=== PATIENT | male | born 1955 | race Caucasian/White ===

== ENCOUNTER 2017-04-17 12:11 | Emergency (ER) | payer OTHER ==
--- NOTE | 2017-04-17 12:22 | EDPHY ---
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 He fell about 3 feet from the ground and landed on his back and hit the back of his head. He denies loss of consciousness, he denies amnesia, he denies nausea vomiting, denies any neurologic problems, he denies any major scalp trauma except for a knot in the left occiput region. Came here because the simply requested that. He has some mild bruising or contusion to the left shoulder blade also but he can move everything around well and thinks he is fine. REVIEW OF SYSTEMS: A 10 point review of systems was performed and is negative with the exception of the elements mentioned in the history of present illness. PHYSICAL EXAM: HR, BP, O2 Sat, RR. Temp noted General Appearance: Alert, well hydrated, appropriate, and non-toxic appearing. Head: Small hematoma left occipital region. No laceration. No abrasion. No hemotympanum Eyes: Pupils equal, round, reactive to light and accommodation, EOMI, no trauma , no injection. Ears: Clear bilaterally, no perforation, normal landmarks Nose: Atraumatic, no rhinorrhea, clear. Throat: There is no erythema or exudates, no lesions, normal tonsils, mucus membranes moist. Neck: Supple, 2+ carotid upstroke, nontender, no lymphadenopathy. Respiratory: No retractions, no distress, no wheezes, and no accessory muscle use. Lungs are clear to auscultation bilaterally. Cardiovascular: Regular rate and rhythm, no murmurs, rubs, or gallops. Bilateral carotid, radial, dorsalis pedis, and posterior tibial pulses intact. Good capillary refill all extremities. Gastrointestinal: Abdomen is soft, nontender, non-distended, no masses, no rebound, no guarding, no peritoneal signs. Musculoskeletal: Mild contusion left shoulder blade excellent range of motion of all extremities Normal active ROM of all extremities, atraumatic. Neurological: Alert, appropriate, and interactive. The patient has normal DTRs and non-focal cranial nerves, motor, sensory, and cerebellar exam. Skin: No rashes, good turgor, no nodules on palpation. Past medical history: Hypertension Past surgical history: Noncontributory Family history: Noncontributory Social history: Employed, , does not abuse tobacco drugs or alcohol DIAGNOSTICS/PROCEDURES/CRITICAL CARE TIME: Not indicated based on negative [place] head CT rules set DIFFERENTIAL DIAGNOSIS: The differential diagnosis for the patient's trauma included but was not limited to intracranial injury, long bone and pelvic bone fractures, spinal injury, intra-abdominal injury, and intra-thoracic injury. MEDICAL DECISION MAKING: This patient rules out in terms of requiring any neuro imaging. In addition he has some mild contusion of his left scapula. I will send him home with no work restrictions. He does not want any pain meds and will just use ibuprofen or Naprosyn. He will follow up with Work Comp as needed his employer's here in the room. Departure - Departure Disposition: Home, Routine, Self-Care Clinical Impression: Scalp contusion Qualifiers: Encounter type: initial encounter Qualified Code(s): S00.03XA - Contusion of scalp, initial encounter Condition: Good Instructions: Hematoma (ED) Additional Instructions: If any nausea, vomiting, or developing a worsening headache please return here immediately. Otherwise have no work restrictions. Referrals: Renetta Hawthorne MD [Primary Care Provider] - As per Instructions
[2017-04-17 12:34] VITALS: BP 133/79; PULSE 68; RESP 16; TEMP 97.7; O2SAT 96
== END 2017-04-17 12:25 | disposition home or self-care (01) ==
LOC: CED 12:11
DX: S00.03XA Contusion of scalp, initial encounter (principal); I10 Essential (primary) hypertension; W17.89XA Other fall from one level to another, initial encounter